=== PATIENT | male | born 1995 | race Caucasian/White ===

== ENCOUNTER 2018-07-20 21:35 | Emergency (ER) | payer SELFPAY ==
[~2018-07-20] VITALS: Ht 172.7 cm; Wt 68.0 kg
[2018-07-20] MEDS ORDERED: ONDANSETRON HCL 4MG/2ML INJ IV STA (23:56)
[2018-07-20] MEDS ORDERED: SODIUM CHLORIDE 0.9% 1,000 ML IV ONE (23:56)
[2018-07-21 01:22] LABS: BASOPHILS % 0.9 % (0.0-2.0); EOSINOPHILS % 3.8 % (0.0-5.0); HEMOGLOBIN. 14.2 g/dL (14.0-18.0); LYMPHOCYTES % 45.1 % (20.0-50.0); MEAN CORPUSCULAR HEMOGLOBIN 29.8 pg (28.0-32.0); MEAN CORPUSCULAR VOLUME 87.9 fL (80.0-94.0); MEAN PLATELET VOLUME 8.4 fl (7.4-10.4); MONOCYTES % 7.8 % (2.0-8.0); NEUTROPHILS % 42.4 % (40.0-76.0); PLATELET 201 x1000/uL (130-400); RED BLOOD CELL COUNT 4.77 mill/uL (4.7-6.1); RED CELL DISTRIBUTION WIDTH 15.3 % (11.6-14.6)
[2018-07-21 01:29] LABS: CHLORIDE 104 mEq/L (98-107)
[2018-07-21 01:33] LABS: ETHANOL BLOOD < 10 mg/dL
[2018-07-21 01:38] LABS: CREATINE KINASE 262 IU/L (39-308)
[2018-07-21 01:46] LABS: *AMPHETAMINES SCREEN URINE PRESUMTIVE POSITIVE (NEGATIVE); *BARBITURATES SCREEN URINE NEGATIVE (NEGATIVE); *BENZODIAZEPINES SCREEN URINE PRESUMTIVE POSITIVE (NEGATIVE); *COCAINE SCREEN URINE NEGATIVE (NEGATIVE)
[2018-07-21 01:48] LABS: CANNABINOID URINE SCREEN PRESUMTIVE POSITIVE (NEGATIVE); CLARITY URINE CLOUDY (CLEAR); COLOR URINE YELLOW (YELLOW); KETONES URINE NEGATIVE (NEGATIVE); LEUKOCYTE ESTERASE URINE NEGATIVE (NEGATIVE); METHADONE URINE SCREEN NEGATIVE (NEGATIVE); NITRITE URINE NEGATIVE (NEGATIVE); OCCULT BLOOD URINE NEGATIVE (NEGATIVE); OPIATES URINE SCREEN PRESUMTIVE POSITIVE (NEGATIVE); PH URINE 6.5 (4.5-8.0); PHENCYCLIDINE URINE SCREEN NEGATIVE (NEGATIVE); PROTEIN URINE 1+ (NEGATIVE); SPECIFIC GRAVITY URINE 1.025 (1.005-1.030)
[2018-07-21 07:16] VITALS: BP 120/70
== END 2018-07-21 07:27 | disposition home or self-care (01) ==
LOC: ER 21:35
DX: G92 Toxic encephalopathy (principal); E86.0 Dehydration; T50.901A Poisoning by unspecified drugs, medicaments and biological substances, accidental (unintentional), initial encounter; Y92.9 Unspecified place or not applicable
CPT/HCPCS: 36415; 80053; 80305; 80307; 80329; 81003; 82550; 84443; 84484; 85025; 87186; 93005; 96361; 96374; 99284; J2405; J7030; Z7610

== ENCOUNTER 2022-07-26 06:30 | Emergency (ER) | payer MEDICAID, OTHER ==
[~2022-07-26] VITALS: Ht 170.2 cm; Wt 81.0 kg
[2022-07-26 06:40] VITALS: BP 152/90
[2022-07-26] MEDS ORDERED: ONDANSETRON 4MG ODT PO ONE ×2 (07:15→09:00)
[2022-07-26] MEDS ORDERED: IBUPROFEN 600MG TABLET PO ONE (07:15)
[2022-07-26] MEDS ORDERED: ONDA4TAB50 MT (09:02)
[2022-07-26] MEDS ORDERED: HYDR-3735 MT (09:02)
== END 2022-07-26 09:19 | disposition home or self-care (01) ==
LOC: ER 06:30
DX: F11.23 Opioid dependence with withdrawal (principal); F13.239 Sedative, hypnotic or anxiolytic dependence with withdrawal, unspecified
CPT/HCPCS: 99283; Q0162

== ENCOUNTER 2022-09-30 16:41 | Emergency (ER) | payer OTHER ==
[~2022-09-30] VITALS: Ht 170.2 cm; Wt 73.0 kg
[~2022-09-30 16:41] MED LIST: HYDR-3735 MT; ONDA4TAB50 MT
[2022-09-30] MEDS ORDERED: KETOROLAC 15MG/ML VIAL IV ONE ×2 (17:00→19:30)
[2022-09-30] MEDS ORDERED: VANCOMYCIN 1G PREMIX 200 ML IV ONE (17:00)
[2022-09-30] MEDS ORDERED: SODIUM CHLORIDE 0.9% 1000ML BAG (SEPSIS BOLUS) IV ONE (17:00)
[2022-09-30] MEDS ORDERED: PIPERACILLIN/TAZ 3.375G PREMIX 50 ML IV ONE (17:00)
[2022-09-30 17:35] LABS: CHLORIDE 99 mEq/L (98-107)
[2022-09-30 18:24] LABS: BASOPHILS % 0.1 % (0.0-2.0); LYMPHOCYTES % 10.1 % (20.0-50.0); MEAN CORPUSCULAR HEMOGLOBIN 21.8 pg (28.0-32.0); MEAN CORPUSCULAR VOLUME 69.6 fL (80.0-94.0); MONOCYTES % 11.8 % (2.0-8.0); PLATELET 431 x1000/uL (130-400); RED BLOOD CELL COUNT 2.95 mill/uL (4.7-6.1); RED CELL DISTRIBUTION WIDTH 16.1 % (11.6-14.6)
[2022-09-30 18:32] LABS: HEMATOCRIT. 20.5 % (42.0-52.0); HEMOGLOBIN. 6.4 g/dL (14.0-18.0)
[2022-09-30 18:48] LABS: PLATELET ESTIMATE INCREASED
[2022-09-30] MEDS ORDERED: VANCOMYCIN 1G PREMIX 200 ML IV NR (21:30)
[2022-09-30 22:45] VITALS: BP 104/59
[2022-09-30] MEDS ORDERED: IOHEXOL-300 100 ML BOTTLE ONE (23:13)
== END 2022-10-01 01:23 | disposition short-term general hospital (02) ==
LOC: ER 16:41
DX: S92.901A Unspecified fracture of right foot, initial encounter for closed fracture (principal); D64.9 Anemia, unspecified; Z20.822 Contact with and (suspected) exposure to COVID-19; V09.9XXA Pedestrian injured in unspecified transport accident, initial encounter; Y93.89 Activity, other specified; Y92.89 Other specified places as the place of occurrence of the external cause; Y99.8 Other external cause status
CPT/HCPCS: 36415; 71045; 73560; 73610; 73630; 73700; 80053; 83605; 83880; 84145; 84484; 85025; 86850; 86900; 86901; 86920; 87040; 87426; 93005; 93970; 96365; 96366; 96375; 96376; 99285; C9803; J1885; J2543; J3370; J7030; Q9967; Z7610